=== PATIENT | female | born 1985 | race Asian ===

== ENCOUNTER 2019-04-25 23:20 | Inpatient (IN) | payer BC, SELFPAY ==
[2019-04-25 23:57] VITALS: BMI 21.8
[2019-04-26] MEDS ORDERED: hydrALAZINE 20 MG/ML VIAL SLOW IVP PRN ×2 (00:52→11:48)
[2019-04-26] MEDS ORDERED: Ondansetron PF 4 MG/2 ML Vial IVP PRN ×3 (00:52→11:48)
[2019-04-26] MEDS ORDERED: Acetaminophen 500 MG TAB PO PRN (00:52)
[2019-04-26] MEDS ORDERED: Promethazine HCl 25 MG/ML VIAL IM PRN ×2 (00:52→03:30)
[2019-04-26] MEDS ORDERED: Butorphanol Tartrate 1 MG/ML VIAL SLOW IVP PRN (00:52)
[2019-04-26] MEDS: Lactated Ringer's 1,000 ML IV SCH ×2 (01:00→06:59)
[2019-04-26] MEDS ORDERED: Methylergonovine 0.2 MG/ML VIAL IM PRN (01:00)
[2019-04-26] MEDS ORDERED: Penicillin G Potassium 5 MILL.UNITS in Sodium Chloride 0.9% 100 ML IVPB SCH (01:00)
[2019-04-26] MEDS ORDERED: Lidocaine 1% (PF) 30 ML VIAL SC PRN (01:00)
[2019-04-26] MEDS ORDERED: Ibuprofen 800 MG TAB PO PRN (01:00)
[2019-04-26] MEDS ORDERED: Misoprostol 200 MCG TAB RC PRN (01:00)
[2019-04-26] MEDS ORDERED: NS w/ Oxytocin 10 units 500 ML IV SCH ×2 (01:00)
[2019-04-26 01:04] LABS: Hemoglobin 12.4 g/dL (12.0-16.0); Mean Corpuscular HGB CONC 35.1 g/dL (32.0-36.0); Mean Corpuscular Hemoglobin 34.5 pg (27.0-31.0); Mean Corpuscular Volume 98.3 fL (78.0-98.0); Mean Platelet Volume 8.3 fL (7.4-10.4); Platelet Count 175 thou/uL (130-400); RBC Distribution Width 12.5 % (11.5-14.5); White Blood Cell (WBC) Count 9.7 thou/uL (4.8-10.8)
[2019-04-26 01:43] LABS: Hep B Surf Ag Non-Reactive S/CO (NonReactive)
[2019-04-26] MEDS ORDERED: Fentanyl 4 mcg/Bup 0.1% Cadd 100 ML ONE (02:49)
[2019-04-26] MEDS ORDERED: Naloxone HCl 0.4 mg/ml Vial IVP PRN ×2 (03:30)
[2019-04-26] MEDS ORDERED: ePHEDrine/0.9% NaCl/PF SYRINGE 50 mg/10 ml SLOW IVP PRN (03:30)
[2019-04-26] MEDS ORDERED: Fentanyl 4 mcg/Bupivacaine 0.1% Cassette 100 ML EPIDURAL SCH (03:30)
[2019-04-26] MEDS ORDERED: Communication Order-Pharmacy FS SCH (03:30)
[2019-04-26] MEDS ORDERED: diphenhydrAMINE 50 MG/ML VIAL IVP PRN (03:30)
[2019-04-26] MEDS ORDERED: Lactated Ringer's 500 ML IV PRN (03:30)
[2019-04-26] MEDS ORDERED: Acetaminophen 325 MG TAB PO PRN (03:30)
[2019-04-26] MEDS: Penicillin G 2.5 MILL.units 2.5 MILL.UNITS in Premix Bag 1 BAG IVPB SCH ×3 (05:41→14:22)
[2019-04-26 06:13] LABS: Syphilis Antibody Nonreactive (Nonreactive); Syphilis Antibody Index 0.03 S/CO (<1.00 Non-Reactive)
[2019-04-26] MEDS: NS / Oxytocin 40 units/1000ml 1,000 ML IV SCH ×2 (10:32→11:34)
[2019-04-26] MEDS ORDERED: Milk Of Magnesia 30 ML UDCUP PO PRN (11:48)
[2019-04-26] MEDS ORDERED: Acetaminophen/Codeine 30-300mg Tablet PO PRN ×2 (11:48)
[2019-04-26] MEDS ORDERED: Zolpidem Tartrate 5 MG TAB PO PRN (11:48)
[2019-04-26] MEDS ORDERED: Bisacodyl 10 MG SUPP PR PRN (11:48)
[2019-04-26] MEDS ORDERED: Preparation H Ointment 28 GM TUBE PR PRN (11:48)
[2019-04-26] MEDS ORDERED: Adacel (T-DAP) 0.5 ML SYRINGE IM ONE (11:48)
[2019-04-26] MEDS ORDERED: Misoprostol 200 MCG TAB VAG PRN (11:48)
[2019-04-26] MEDS ORDERED: Benzocaine-Menthol 82.5 ML CAN TOP PRN (11:48)
[2019-04-26] MEDS ORDERED: Lanolin Ointment 7 GM TUBE TOP PRN (11:48)
[2019-04-26] MEDS ORDERED: NS / Oxytocin 40 units/1000ml 1,000 ML IV SCH (12:00)
[2019-04-26] MEDS: Ibuprofen 800 MG TAB PO SCH ×2 (14:08→21:38)
[2019-04-26] MEDS: Ferrous Sulfate 325 MG TAB PO SCH (16:25)
[2019-04-26] MEDS: Docusate Calcium (SURFAK) 240 MG CAP PO SCH (21:38)
[2019-04-27] MEDS: Ibuprofen 800 MG TAB PO SCH ×3 (04:51→21:22)
[2019-04-27] MEDS: Ferrous Sulfate 325 MG TAB PO SCH ×2 (07:56→15:04)
[2019-04-27] MEDS: Prenatal Vitamin 1 TAB PO SCH (09:32)
[2019-04-27] MEDS: Docusate Calcium (SURFAK) 240 MG CAP PO SCH ×2 (09:32→21:21)
[2019-04-28] MEDS: Ibuprofen 800 MG TAB PO SCH ×2 (05:14→14:49)
[2019-04-28] MEDS: Ferrous Sulfate 325 MG TAB PO SCH (08:25)
[2019-04-28 08:46] VITALS: BP 89/51; TEMP 98.4
[2019-04-28] MEDS: Prenatal Vitamin 1 TAB PO SCH (09:43)
[2019-04-28] MEDS: Docusate Calcium (SURFAK) 240 MG CAP PO SCH (09:43)
== END 2019-04-28 17:26 | disposition home or self-care (01) | DRG 807 ==
LOC: L&D/OP 23:20 → L&D 04-26 02:56 → 3SW 04-26 13:47
PROVIDERS: ADMIT Obstetrics & Gynecology; ATTEND Obstetrics & Gynecology
PROC: 10E0XZZ Delivery of Products of Conception, External Approach (ICD-10-PCS; principal; 2019-04-26)
PROC: 0KQM0ZZ Repair Perineum Muscle, Open Approach (ICD-10-PCS; 2019-04-26)
PROC: 0W8NXZZ Division of Female Perineum, External Approach (ICD-10-PCS; 2019-04-26)
DX: O42.92 Full-term premature rupture of membranes, unspecified as to length of time between rupture and onset of labor (principal); Z37.0 Single live birth; O99.824 Streptococcus B carrier state complicating childbirth; Z3A.37 37 weeks gestation of pregnancy; O70.1 Second degree perineal laceration during delivery
CPT/HCPCS: 36415; 36416; 51702; 85027; 86780; 86850; 86900; 86901; 87340; 99285; J2001; J2540; J3490